=== PATIENT | male | born 1990 | race Two or more races ===

== ENCOUNTER 2016-11-06 12:10 | Day surgery (SDC) | payer OTHER ==
[2016-11-06] MEDS ORDERED: IOPAMIDOL 300 (61%) 100 ML VIAL IV ONE (12:11)
[2016-11-06 13:15] LABS: ABSOLUTE NEUTROPHIL COUNT 9.6 K/mm3 (1.8-7.7); BASO # 0.1 K/mm3 (0.0-0.2); BASO % 0.4 % (0.2-1.0); EOS % 0.2 % (0.9-2.9); HEMATOCRIT 44.6 % (32.0-52.0); HEMOGLOBIN 15.8 gm/l (14.0-18.0); IMM NEUT # 0.1 K/mm3 (0-0.2); IMM NEUT% 0.4 % (0-1); LYMPH # 2.2 (1.0-4.8); MEAN CELL VOLUME 85.4 fl (80.0-94.0); MEAN CORPUSCULAR HEMOGLOBIN 30.3 pg (27.0-31.0); MEAN CORPUSCULAR HGB CONC 35.4 g/dl (33.0-37.0); MEAN PLATELET VOLUME 10.3 fl (7.4-10.4); MONO # 1.1 (0.0-0.8); MONO % 8.5 % (4-12); NEUT % 73.5 % (43-75); PLATELET COUNT 229 K/mm3 (130-400)
--- NOTE | 2016-11-06 13:31 | CT ---
ABD/PELVIS W/ CON COMPARISON: None. HISTORY: 26-year-old male with 3 days of right lower quadrant pain. Technique: No oral contrast. Intravenous injection 100 mL Isovue 370. Using a [employer] Aquilion [address] scanner, images were obtained from the diaphragm to the floor the pelvis. An automated dose reduction technique was used to minimize patient radiation dose. Dose information: CTDIvol (mGy): 5.20 DLP(mGycm): 227.50 FINDINGS: Lung bases: Normal. Inferior mediastinum and heart: Normal. Liver: Normal. Gallbladder:Normal. Bile ducts: Normal. Pancreas: Normal. Spleen: Normal. Adrenal glands: Normal. Kidneys: Normal. Ureters: Normal Urinary bladder: Normal. Prostate gland and seminal vesicles: Normal. Blood vessels: Normal Lymph nodes: Normal Stomach: Normal Duodenum: Normal Small intestine: Normal Appendix: Acute appendicitis. 10 mm appendicolith obstructing the orifice. The appendix is distended to 12 mm. There are smaller appendicoliths in the tip of the appendix. No rupture. No abscess. Colon: Normal Abdominal wall and supporting musculature: Normal Bones: Normal IMPRESSION: Acute appendicitis. The gallbladder is distended, obstructed by appendicolith at 10 mm, with additional appendicoliths in the tip of the appendix. No rupture or abscess. The results were discussed with Landon Santos M.D. 11/06/2016 at 13:27
[2016-11-06 13:37] LABS: CALCIUM 9.2 mg/dL (8.6-10.3)
[2016-11-06] MEDS ORDERED: PIPERACILLIN-TAZO PREMIX BAG 50 ML IV ONE (13:40)
[2016-11-06 14:07] LABS: SPECIFIC GRAVITY 1.015 (1.001-1.030); URINE BILIRUBIN NEGATIVE (NEGATIVE); URINE BLOOD NEGATIVE (NEGATIVE); URINE GLUCOSE (UA) NEGATIVE (NEGATIVE); URINE LEUKOCYTE ESTERASE NEGATIVE (NEGATIVE); URINE NITRITE NEGATIVE (NEGATIVE); URINE PROTEIN NEGATIVE (NEGATIVE); URINE UROBILINOGEN NORMAL (0-1 mg/dl)
--- NOTE | 2016-11-06 14:08 | PDOC1 ---
History & Physical: CC: Abdominal pain HPI: 26yo M with abdominal pain. This started 3 days ago as a constant generalized abdominal pain with associated "bloating." Over the last day, the pain worsened and migrated to the right lower quadrant. He has had associated nausea and constipation, but denies any recent F/C/V/CP/SOB, change in bladder fx, diarrhea, unintentional weight loss, easy bleeding/bruising, or other associated symptoms. REVIEW OF SYSTEMS CONSTITUTIONAL: As per HPI. EARS, NOSE, MOUTH, THROAT: No sneezing or runny nose CARDIOVASCULAR: As per HPI. RESPIRATORY: As per HPI. GASTROINTESTINAL: As per HPI. GENITOURINARY: As per HPI. NEUROLOGICAL: No history of seizures HEMATOLOGIC: As per HPI. MUSCULOSKELETAL: No change in strength. LYMPHATICS: No history of splenectomy. PSYCHIATRIC: No change in personality or affect PMH: None PSH: None Meds: None All: NKDA SH: Denies tobacco or EtOH FH: No FH of IBD or colorectal cancer Vitals (last 24 hours): Vitals reviewed, AFVSS (See IBEX report for details) Physical Exam: General/Constitutional: Vitals documented above, comfortable in NAD Psych: A&O x 3, normal judgment and insight. Recent and remote memory intact. Mood and affect normal. Eyes: Pupils equal, no scleral icterus Ears, Nose, Mouth, Throat: gross hearing intact Neck: Supple Heart: RRR, no LE edema Lungs: Equal rise and fall of chest wall, non-labored breathing, no audible wheezes Neuro: Gross sensation intact Abdomen: Soft, ND, mild RLQ TTP, no guarding. Labs (Last 24 hours): Laboratory Results - last 24 hr 11/06/16 12:55 WBC 13.1 H RBC 5.22 Hgb 15.8 Hct 44.6 MCV 85.4 MCH 30.3 MCHC 35.4 RDW 12.0 Plt Count 229 Neut % (Auto) 73.5 Lymph % (Auto) 17.0 [place] % (Auto) 8.5 Baso % (Auto) 0.4 Absolute Neuts (auto) 9.6 H Eosinophils % 0.2 L % Immature Granulocyt 0.4 Chem and UA Pending Radiology: CT A/P (11/06/16): 10mm appendix with large 12mm fecalith at origin and additional smaller fecaliths in the tip. No signs of perforation. A/P: 26yo M with appendicitis with fecalith. He was given a dose of IV Zosyn in the ED. I recommend laparoscopic appendectomy. The risks of the procedure were discussed to include but not limited to bleeding , infection, pain, scar, damage to surrounding structures (small intestine, large intestine, bladder), need for additional procedures (conversion to open, ileocectomy), failure to improve health, and risks of anesthesia (heart attack, arrhythmia, blood clot, stroke, and ). The patient understands these risks and agrees to proceed with surgery. Will plan for laparoscopic appendectomy this afternoon. Bryon Kaur MD General Surgeon
[2016-11-06 14:16] LABS: URINE APPEARANCE CLEAR; URINE COLOR YELLOW
[2016-11-06] MEDS ORDERED: SUCCINYLCHOLINE CHL 20 MG/ML DOSE ONE (14:42)
[2016-11-06] MEDS ORDERED: PROPOFOL 20 ML IV ONE (14:42)
[2016-11-06] MEDS ORDERED: MIDAZOLAM HCL 1 MG/ML 2ML VIAL ONE (14:42)
[2016-11-06] MEDS ORDERED: LIDOCAINE 2% (PRES FREE) 5 ML VIAL ONE (14:42)
[2016-11-06] MEDS ORDERED: FENTANYL 100 MCG/2 ML VIAL ONE ×2 (14:43→15:47)
[2016-11-06] MEDS ORDERED: BUPIVACAINE 0.5% (PRES FREE) 30 ML VIAL ONE (15:52)
[2016-11-06] MEDS ORDERED: LIDOCAINE 1%/EPI 1:100,000 (MULTI DOSE) 30 ML VIAL ONE (15:52)
[2016-11-06] MEDS ORDERED: DEXAMETHASONE SOD PHOS 4 MG/1 ML VIAL ONE (16:37)
[2016-11-06] MEDS ORDERED: ROCURONIUM BROMIDE 10 MG/ML DOSE IV ONE (16:37)
[2016-11-06] MEDS ORDERED: ONDANSETRON 4 MG/2ML 2 ML VIAL ONE (16:37)
[2016-11-06] MEDS ORDERED: HYDROMORPHONE HCL 2 MG/ML SYRINGE ONE (16:49)
[2016-11-06] MEDS ORDERED: GLYCOPYRROLATE 0.2 MG/ML 1ML VIAL ONE (17:05)
[2016-11-06] MEDS ORDERED: NEOSTIGMINE METHYLSULFATE 1 MG/ML DOSE ONE (17:05)
[2016-11-06] MEDS ORDERED: MEPERIDINE 25 MG/ML SYRINGE IV PRN (17:19)
[2016-11-06] MEDS ORDERED: HYDROMORPHONE HCL 1 MG/ML SYRINGE IV PRN (17:19)
[2016-11-06] MEDS ORDERED: ONDANSETRON 4 MG/2ML 2 ML VIAL IV PRN ×2 (17:19→18:01)
[2016-11-06] MEDS ORDERED: FENTANYL 100 MCG/2 ML VIAL IV PRN (17:19)
[2016-11-06] MEDS ORDERED: NALOXONE HCL 0.4 MG/ML VIAL IV PRN (17:19)
[2016-11-06] MEDS ORDERED: PROMETHAZINE HCL 25 MG/ML VIAL IM PRN (17:19)
[2016-11-06] MEDS ORDERED: ATROPINE SULFATE 0.4 MG/1 ML VIAL IV PRN (17:19)
[2016-11-06] MEDS ORDERED: LACTATED RINGERS 1,000 ML IV SCH ×2 (17:30→18:01)
--- NOTE | 2016-11-06 17:35 | PCMON ---
OPERATIVE REPORT Pre-Op Diagnosis: Acute appendicitis Post-Op Diagnosis: Acute suppurative appendicitis Operation: Laparoscopic Appendectomy Surgeon: Cassandra Kaur MD Resource Recovery Engineer: None Anesthesia: GETA Pre-Operative Antibiotics: Zosyn 3.375g Specimen Sent to Lab: Appendix Date of Operation: 06 Nov 2016 Infection Classification: 3 Estimated Blood Loss: 5mL Indication for Procedure: The patient is a 26 year old male with a 3 day history of right lower quadrant pain. He has an elevated WBC and a CT scan shows an enlarged appendix with a fecalith. These findings are consistent with acute appendicitis. The plan for today is a laparoscopic appendectomy. Description of Findings: The appendix was suppurative but not perforated. Detailed Operative Report: The patient was met in the pre-operative holding area by the operating team. All questions and concerns were addressed appropriately. The patient was taken to the operating room where general anesthesia was induced. A Tran catheter was placed. The abdomen was prepped and draped in the normal sterile fashion. ~ Local anesthetic was injected into the proposed infra-umbilical incision site. The skin was incised. The fascia was elevated and incised. Direct entry into the peritoneum was confirmed. A 12mm~balloon trocar was inserted into the abdomen. The abdomen was insufflated to a pressure of 15mm Hg, which the patient tolerated well. The laparoscope was inserted and the abdomen was inspected. There were no injuries from initial trocar placement. Two additional 5mm trocars were placed in the left lower quadrant and supra-pubic positions. The table was placed in the Trendelenburg position with the right side up. ~ The appendix was readily visible. It appeared inflamed and suppurative, but not perforated. The appendix was grasped and a mesenteric window was created at the base of the appendix. The appendix was divided with a linear cutting stapler using a 45mm blue load. The mesoappendix was similarly divided using a 45mm white load. The appendix was placed into an endoscopic retrieval bag. The right lower quadrant was thoroughly irrigated and hemostasis was ensured. ~ Secondary trocars were removed under direct vision. The infra-umbilical trocar was removed along with the specimen and the abdomen was allowed to collapse. The fascia of the infra-umbilical site was closed with 0-Vicryl in a figure of eight fashion. All skin was closed with 4-0 Monocryl. The wounds were dressed with mastisol, steri-strips, and band-aids. The Tran catheter was removed. The patient was then awakened from anesthesia, extubated, and transferred to the PACU without complication. Prior to closing, all sponge and instrument counts were correct.~~ CASSANDRA KAUR MD
[2016-11-06] MEDS ORDERED: MEPERIDINE 25 MG/ML SYRINGE ONE (17:43)
[2016-11-06 18:27] VITALS: BMI 23.8
[2016-11-06] MEDS: MORPHINE SULFATE 2 MG/ML SYRINGE IV PRN ×3 (20:09→21:12)
[2016-11-06] MEDS: OXYCODONE/ACETAMINOPHEN 5/325 MG TABLET PO PRN (21:53)
[2016-11-07] MEDS: OXYCODONE/ACETAMINOPHEN 5/325 MG TABLET PO PRN (01:54)
[2016-11-07 05:07] VITALS: BP 95/64
[2016-11-07] MEDS ORDERED: MORPHINE SULFATE 2 MG/ML SYRINGE IV PRN (17:28)
--- NOTE | 2016-11-09 11:50 | SURGPATH ---
[facility] [address] [place] [id number] Patient Name: JEANNE ROCHA MR#: [id number] : 1990 Gender: M Specimen #: [id number] Collected: 11/06/2016 Received: 11/08/2016 Reported: 11/09/2016 Submitting Phys: CASSANDRA HUI Copy To Phys: [facility] Clinical History / Pre-Operative Diagnosis: ACUTE APPENDICITIS Specimen Source / Surgical Procedure Performed: APPENDIX Interpretation: APPENDIX, APPENDECTOMY: - ACUTE APPENDICITIS Electronically Signed Out Vale Francisco M.D. Gross Description: The specimen is received in a formalin filled container labeled with the patient's name and "appendix". A vermiform appendix is 6.3 x 1.2 cm. The attached focally hemorrhagic periappendiceal fat is 5.0 x 1.7 x 1.4 cm. The filled lezama serosa has focal fibrous adhesions and areas covered with white clemons fibrinopurulent exudate. The surgical staple line is removed and the adjacent section is inked black and submitted as margin. The lumen is focally patent and contains soft pale lezama purulent material and a 1 cm brown fecalith. There is no nodule. Three access service representative sections are submitted in one cassette including a cross section through the appendiceal surgical margin, a central cross section and a longitudinal section through the tip. Federica Purvis. Microscopic Description: Sections show an ulcerated appendix with transmural acute inflammation. [id number]: [id number] K35.80
== END 2016-11-07 05:05 | disposition home or self-care (01) ==
LOC: ED 12:10 → SDC 13:51 → MS 18:01 → SDC 11-07 05:05
PROVIDERS: ATTEND Surgery
PROC: 0DTJ4ZZ Resection of Appendix, Percutaneous Endoscopic Approach (ICD-10-PCS; principal; 2016-11-07)
DX: K35.80 Unspecified acute appendicitis (principal)
CPT/HCPCS: 44970; 85025; 80048; 81003; 74177; J2175; J1170; J3010 ×2; J1100; J2270 ×2; A9270 ×2; J2250; J2001; J2405; J2543; J7030; Q9967